=== PATIENT | male | born 1955 | race Caucasian/White ===

== ENCOUNTER 2018-06-16 12:41 | Emergency (ER) | payer BC ==
--- OUTSIDE RECORDS SUMMARY | 2018-06-16 12:45 | XMS REPORT | Continuity of Care Document ---
:1955 Author Organization Interface Problems Problem Status Onset Classification Date Comments Source Date Reported M51.26,CPT-15804, Active 08/09/19 [facility]27 [facility] [place] M51.26,CPT-37628, Active 08/09/19 38307 [address] [place] History of back Resolved Problem 12/03/2017 [facility] Hyperlipidemia Active Problem 12/03/2017 [facility] Hypertension Active Problem 12/03/2017 [facility] OTHER Active INTERVERTEBRAL [place] DISC DISPLACEMENT, Medications Medication Details Route Status Patient Ordering Order Source Instructions Provider Date Docusate Sodium 100 mg=1 cap, Active 100 MG Oral PO, BID, # 30 2016 [facility] Capsule cap, 1 Refill(s), Pharmacy: [id number] Diazepam 5 MG See Active Oral Tablet Instructions, 2016 [facility] [Valium] PRN Muscle Spasms, 1 tab PO q4-6 hrs prn muscle spasms, # 30 tab, 4 Refill(s) glycopyrrolate Route: IV, Drug Inactive (ANES) form: INJ, ONCE, 2016 [facility] Stop date: 08/30/16 13:42:00 [employer] neostigmine Route: IV, Drug Inactive (ANES) form: INJ, ONCE, 2016 Stop date: 08/30/16 13:42:00 [employer] ePHEDrine (ANES) Route: IV, Drug Inactive form: INJ, ONCE, 2016 [facility] Stop date: 08/30/16 13:12:00 [employer] ondansetron Route: IV, Drug Inactive (ANES) form: INJ, ONCE, 2016 [facility] Stop date: 08/30/16 12:42:00 [employer] propofol (ANES) Route: IV, Drug Inactive form: INJ, ONCE, 2016 [facility] Stop date: 08/30/16 12:22:00 [employer] morphine Sulfate Route: IV, Drug Inactive 02/13/ MH (ANES) form: INJ, ONCE, 2016 [facility] Stop date: 08/30/16 12:22:00 [employer] lidocaine (ANES) Route: IV, Drug Inactive 08/30/ MH form: INJ, ONCE, 2016 [facility] Stop date: 08/30/16 12:22:00 [employer] dexamethasone Route: IV, Drug Inactive 08/30/ MH (ANES) form: INJ, ONCE, 2016 [facility] Stop date: 08/30/16 12:22:00 [employer] rocuronium Route: IV, Drug Inactive 08/30/ MH (ANES) form: INJ, ONCE, 2016 [facility] Stop date: 08/30/16 12:22:00 [employer] ceFAZolin (ANES) Route: IV, Drug Inactive 08/30/ MH form: INJ, ONCE, 2016 [facility] Stop date: 08/30/16 12:22:00 [employer] fentaNYL (ANES) Route: IV, Drug Inactive MH form: INJ, ONCE, 2016 [facility] Stop date: 08/30/16 12:17:00 [employer] midazolam (ANES) Route: IV, Drug Inactive MH form: SOLN, 2016 [facility] , Stop date: 08/30/16 12:17:00 [employer] phenylephrine Route: IV, Drug Inactive 08/30/ MH (ANES) form: INJ, ONCE, 2016 [facility] Stop date: 08/30/16 12:12:00 [employer] acetaminophen Route: IV, Drug Inactive 08/30/ MH (ANES) (ANES) form: INJ, Start 2016 date: 08/30/16 11:49:00 [employer], Stop date: 08/30/16 12:49:00 [employer] LR 1000 mL INJ Route: IV, Total Inactive MH (ANES) Volume: 1,000, 2016 [facility] Start date: 08/30/16 11:10:00 [employer], Stop date: 08/30/16 12:10:00 [employer] 24 HR tramadol 100 mg, 2 tab, Inactive MH hydrochloride Route: PO, Drug 2016 [facility] 100 MG Extended form: TAB, PRN, Release Tablet PRN Pain Score 6-10, Start date: 08/30/16 9:31:00 [employer], Stop date: 08/30/16 23:00:00 CSTNotes: Not to exceed 400mg/day. (Same As: Ultram) tramadol 50 mg, 1 tab, Inactive hydrochloride 50 Route: PO, Drug 2016 [place] MG Oral Tablet form: TAB, ONCE, Dosing Weight 80.909, kg, PRN Pain Score 1-3, Start date: 08/30/16 9:31:00 CSTNotes: Not to exceed 400mg/day. (Same As: Ultram) Acetaminophen 2 tab, Route: Inactive 325 MG / PO, Drug Form: 2016 [facility] Hydrocodone TAB, Dosing Bitartrate 5 MG Weight 80.909, Oral Tablet kg, ONCE, PRN [[place] 5/325] Pain Score 4-6, Start date: 08/30/16 9:31:00 CSTNotes: (Same as: [place] 325/5) Do not exceed 4gm/day of acetaminophen. Acetaminophen 2 tab, Route: Inactive 300 MG / Codeine PO, Drug Form: 2016 [facility] Phosphate 30 MG TAB, Dosing Oral Tablet Weight 80.909, [Tylenol with kg, ONCE, PRN Codeine #3] Pain Score 4-6, Start date: 08/30/16 9:31:00 CSTNotes: Do not exceed 4gm/day of acetaminophen. (Same as: Tylenol with Codeine # 3) Ondansetron 4 mg, 2 mL, Inactive Route: IVP, Drug 2016 [facility] form: INJ, ONCE, Dosing Weight 80.909, kg, PRN Nausea & Vomiting, Start date: 08/30/16 9:31:00 CSTNotes: (Same as: [place]) MEDICATION WASTE Product Size: 4 mg Product Wasted: ___ mg Meperidine 12.5 mg, 0.5 mL, Inactive Route: IVP, Drug 2016 [facility] form: INJ, Q30Min, Dosing Weight 80.909, kg, PRN Other -See Comment, For shivering, Start date: 08/30/16 9:31:00 [employer], Duration: 2 doses or times, Stop date: 08/30/16 23:00:00 CSTNotes: (Same as: Demerol) "Use Precaution in Elderly, Seizure disorders, and Renal impairment" Naloxone 0.4 mg, 1 mL, Inactive Route: IVP, Drug 2016 [facility] form: INJ, Q2MIN, Dosing Weight 80.909, kg, PRN Narcotic Reversal, Start date: 08/30/16 9:31:00 [employer], Duration: 8 doses or times, Stop date: 08/30/16 23:00:00 CSTNotes: Same as Narcan Albuterol 0.83 2.5 mg, 0.5 mL, Inactive MG/ML Inhalant Route: NEB, Drug 2016 [facility] Solution form: SOLN, Q20Min, Dosing Weight 80.909, kg, PRN Wheezing, Priority: STAT, Start date: 08/30/16 9:31:00 [employer], Duration: 12 hr, Stop date: 08/30/16 21:30:00 CSTNotes: SEE RT DOCUMENTATION MEDICATION WASTE Product Size: 2.5 mg Product Wasted: ___ mg Morphine 4 mg, 1 mL, Inactive Route: IVP, Drug 2016 [facility] form: INJ, Q5Min, Dosing Weight 80.909, kg, PRN Pain Score 7-10, Start date: 08/30/16 9:31:00 [employer], Duration: 3 doses or times, Stop date: 08/30/16 23:00:00 CSTNotes: (Same as:MORPhine Sulfate) Flumazenil 0.2 mg, 2 mL, Inactive Route: IVP, 2016 [facility] form: INJ, PRN, Dosing Weight 80.909, kg, PRN Benzodiazepine Reversal, Initial dose, Start date: 08/30/16 9:31:00 [employer], Stop date: 08/30/16 23:00:00 CSTNotes: (Same as: Romazicon) Oxycodone 10 mg, 2 tab, Inactive Route: PO, Drug 2016 [facility] form: TAB, Q4H, Dosing Weight 80.909, kg, PRN Pain Score 7-10, Start date: 08/30/16 9:31:00 [employer], Stop date: 08/30/16 23:00:00 CSTNotes: (Same as: Roxicodone) Hydromorphone 0.5 mg, 0.5 mL, Inactive Route: IVP, 2016 [facility] form: INJ, Q5Min, Dosing Weight 80.909, kg, PRN Pain Score 7-10, Start date: 08/30/16 9:31:00 [employer], Duration: 4 doses or times, Stop date: 08/30/16 23:00:00 CSTNotes: Same as: Dilaudid Ketorolac 30 mg, 1 mL, Inactive Route: IVP, Drug 2016 [facility] form: INJ, ONCE, Dosing Weight 80.909, kg, Start date: 08/30/16 9:31:00 [employer], Duration: 1 doses or times, Stop date: 08/30/16 9:31:00 CSTNotes: (Same as:Toradol) IV bolus must be given >15 seconds. Give IM administration slowly and deeply into the muscle. Not for use > 4 days MEDICATION WASTE Product Size: 30 mg Product Wasted: ___ mg Acetaminophen 1,000 mg, 2 tab, Inactive Route: PO, Drug 2016 [facility] form: TAB, ONCE, Dosing Weight 80.909, kg, PRN Pain Score 1-3, Start date: 08/30/16 9:31:00 [employer], Duration: 1 doses or times, Stop date: Limited # of timesNotes: Max acetaminophen 4000 mg/day (4 gm/day). (Same as: Tylenol Extra Strength) Labetalol 10 mg, 2 mL, Inactive Route: IVP, Drug 2016 [facility] form: INJ, Q5Min, Dosing Weight 80.909, kg, PRN Elevated BP, Start date: 08/30/16 9:31:00 [employer], Duration: 5 doses or times, Stop date: 08/30/16 23:00:00 CSTNotes: (Same as: Normodyne, Trandate) Push over 2 minutes Give bolus over 2-3 minutes. Hydralazine 10 mg, 0.5 mL, Inactive Route: IVP, Drug 2016 [facility] form: INJ, Q20Min, Dosing Weight 80.909, kg, PRN Elevated BP, Start date: 08/30/16 9:31:00 [employer], Duration: 2 doses or times, Stop date: 08/30/16 23:00:00 CSTNotes: (Same as: Apresoline) Push over 5 minutes Acetaminophen 1,000 mg, 100 Inactive mL, Route: IV, 2016 [facility] Drug form: INJ, ONCE, Dosing Weight 80.909, kg, Start date: 08/30/16 9:30:00 [employer], Stop date: 08/30/16 9:30:00 CSTNotes: Infuse over 15 minutes Do not exceed 4gm/day of acetaminophen MEDICATION WASTE Product Size: 1000 mg Product Wasted: ___ mg Calcium Chloride 1,000 mL, Rate: Inactive 0.0014 MEQ/ML / 25 ml/hr, Infuse 2016 [facility] Potassium over: 40 hr, Chloride 0.004 Route: IV, MEQ/ML / Sodium Dosing Weight Chloride 0.103 80.909 kg, Total MEQ/ML / Sodium Volume: 1,000, Lactate 0.028 Start date: MEQ/ML 08/30/16 9:30:00 Injectable [employer], Duration: Solution 12 hr, Stop date: 08/30/16 21:29:00 [employer] Lactated Ringers 1,000 mL, Rate: Inactive 08/30[facility] 1,000 mL 70 ml/hr, Infuse 2016 [facility] over: 14.3 hr, Route: IV, Dosing Weight 80.909 kg, Total Volume: 1,000, Start date: 08/30/16 6:00:00 [employer], Duration: 12 hr, Stop date: 08/30/16 17:59:00 [employer] ceFAZolin 2 gm, 50 mL, Inactive 08/30[facility] Route: IVPB, 2016 [facility] Drug form: INJ, ONCALL, Start date: 08/30/16 6:00:00 [employer], Duration: 12 hr, Stop date: 08/30/16 17:59:00 [employer] Allergies, Adverse Reactions, Alerts Substance Category Reaction Severity Reaction Status Date Comments Source type Reported Bactrim Assertion Critical Drug Active [facility] Immunizations Immunization Date Given Site Status Last Updated Comments Source Results Order Results Value Reference Date Interpretation Comments Source Name Range Vital Signs Vital Sign Value Date Comments Source Respitory Rate 16 08/30/2016 [facility] Systolic (mm Hg) 120 08/30/2016 [facility] Diastolic (mm Hg) 70 08/30/2016 [facility] Systolic (mm Hg) 120 08/30/2016 [facility] Diastolic (mm Hg) 70 08/30/2016 [facility] Respitory Rate 16 08/30/2016 [facility] Systolic (mm Hg) 120 08/30/2016 [facility] Diastolic (mm Hg) 70 08/30/2016 [facility] Respitory Rate 16 08/30/2016 [facility] Heart Rate 85 08/30/2016 [facility] Weight 80.909 08/27/2016 [facility] Height 170.18 cm 08/27/2016 [facility] BMI Calculated 27.94 08/27/2016 [facility] Weight 80.909 08/13/2016 [facility] Height 170.18 cm 08/13/2016 [facility] BMI Calculated 27.94 08/13/2016 [facility] Encounters Location Location Encounter Encounter Reason Attending ADM DC Status Source Details Type Number For Provider Date Date Visit Out[id number] [facility] [place] [facility] [id number]30 [facility] [id number] Edward 08/30 08/30 [facility] Sonam /2016 [facility] [id number] EDWARD 09/15 [facility] [place] [facility] [id number] ED[facility] 10/13 [phone] Procedures Procedure Code Date Perfomer Comments Source Injection into [id number] [facility] lumbar epidural space Laminectomy [id number] [id number] lumbar epidural space Perianal cysts [id number] [facility]
--- OUTSIDE RECORDS SUMMARY | 2018-06-16 12:46 | XMS REPORT ---
:1955 Author Organization eClinicalWorks Care Team Providers Name Role Phone Fredis Soliman Provider Role Unavailable Allergies No Known Allergies Problems Problem Type Condition Code Onset Dates Condition Status Assessment Acute nasopharyngitis J00 Active Problem Mixed hyperlipidemia E78.2 Active Assessment Non-seasonal allergic rhinitis, J30.89 Active unspecified trigger Problem Fungal infection of nail B35.1 Active Problem Sciatic nerve pain, unspecified M54.30 Active laterality Problem Decreased hearing of both ears H91.93 Active Problem B12 deficiency E53.8 Active Problem Neuropathic pain M79.2 Active Problem Disc degeneration, lumbosacral M51.37 Active Problem Hypertension I10 Active Medications Medication Code Code Instructions Start End Status Dosage System Date Date Simvastatin [facility] 22950284103 20 MG Orally Active 1 tablet in Once a day the evening Aspirin Adult [facility] 89228864833 81 MG Orally Active 1 tablet Low Dose Once a day Lisinopril [facility] 29762996896 20 MG Orally Active 1 tablet Once a day Lyrica [facility] 75581567348 50 MG Orally Active 1 capsule Twice a day Vitamin B-12 [facility] 17085977411 1000 MCG Orally Active 1 tablet Once a day Vitamin D3 [facility] 42209074012 1000 UNIT Active 5 capsuleS Orally Once a day Simvastatin [facility] 09844803169 20 MG Orally Active 1 tablet in Once a day the evening Results No Known Results Summary Purpose eClinicalWorks Submission
--- OUTSIDE RECORDS SUMMARY | 2018-06-16 12:46 | XMS REPORT ---
:1955 Author Organization eClinicalWorks Care Team Providers Name Role Phone Fredis Soliman Provider Role Unavailable Allergies, Adverse Reactions, Alerts Substance Reaction Event Type Bactrim [facility] Drug Allergy Problems Problem Type Condition Code Onset Dates Condition Status Assessment Mixed hyperlipidemia E78.2 Active Problem Mixed hyperlipidemia E78.2 Active Problem Fungal infection of nail B35.1 Active Problem Sciatic nerve pain, unspecified M54.30 Active laterality Problem Decreased hearing of both ears H91.93 Active Problem B12 deficiency E53.8 Active Problem Neuropathic pain M79.2 Active Problem Disc degeneration, lumbosacral M51.37 Active Problem Hypertension I10 Active Assessment B12 deficiency E53.8 Active Assessment Sciatic nerve pain, unspecified M54.30 Active laterality Assessment Neuropathic pain M79.2 Active Assessment Decreased hearing of both ears H91.93 Active Assessment Hypertension I10 Active Medications Medication Code Code Instructions Start End Status Dosage System Date Date Simvastatin [facility] 50795825470 20 MG Orally Active 1 tablet in Once a day the evening Simvastatin [facility] 05394181521 20 MG Orally Active 1 tablet in Once a day the evening Lyrica ND 29012116823 50 MG Orally Active 1 capsule Twice a day Aspirin Adult [facility] 80789684084 81 MG Orally Active 1 tablet Low Dose Once a day Vitamin D3 [facility] 27571706173 1000 UNIT Active 5 capsuleS Orally Once a day Lisinopril [facility] 33986095690 20 MG Orally Active 1 tablet Once a day Vitamin B-12 [facility] 00469790207 1000 MCG Orally Active 1 tablet Once a day Results No Known Results Summary Purpose eClinicalWorks Submission
--- OUTSIDE RECORDS SUMMARY | 2018-06-16 12:46 | XMS REPORT ---
:1955 Author Organization eClinicalWorks Care Team Providers Name Role Phone Jourdan Fredis Provider Role Unavailable Allergies No Known Allergies Problems Problem Type Condition Code Onset Dates Condition Status Assessment Hypertension I10 Active Problem Mixed hyperlipidemia E78.2 Active Assessment Mixed hyperlipidemia E78.2 Active Problem Fungal infection of nail B35.1 Active Problem Sciatic nerve pain, unspecified M54.30 Active laterality Problem Decreased hearing of both ears H91.93 Active Problem B12 deficiency E53.8 Active Problem Neuropathic pain M79.2 Active Problem Disc degeneration, lumbosacral M51.37 Active Problem Hypertension I10 Active Assessment Decreased hearing of both ears H91.93 Active Assessment B12 deficiency E53.8 Active Assessment Sciatic nerve pain, unspecified M54.30 Active laterality Assessment Neuropathic pain M79.2 Active Medications Medication Code Code Instructions Start End Status Dosage System Date Date Simvastatin ND 26439715719 20 MG Orally Active 1 tablet in Once a day the evening Vitamin B-12 ND 80329812053 1000 MCG Orally Active 1 tablet Once a day Aspirin Adult [facility] 38078708874 81 MG Orally Active 1 tablet Low Dose Once a day Vitamin D3 [facility] 94517034849 1000 UNIT Active 5 capsuleS Orally Once a day Lyrica ND 73237107871 50 MG Orally Active 1 capsule Twice a day Lisinopril [facility] 06913266069 20 MG Orally Active 1 tablet Once a day Results No Known Results Summary Purpose eClinicalWorks Submission
[2018-06-16] MEDS ORDERED: KETOROLAC 30 MG/ML INJ ONE (15:41)
--- NOTE | 2018-06-16 16:27 | RAD REPORT ---
EXAM DESCRIPTION: RAD - Pelvis - 06/16/2018 3:55 pm CLINICAL HISTORY: PAIN Fall, right-sided pain COMPARISON: None FINDINGS: AP pelvis and right hip, multiple projections are submitted. Osteoarthritic changes are present in both hips. No acute fracture or dislocation seen.
--- NOTE | 2018-06-16 16:30 | RAD REPORT ---
EXAM DESCRIPTION: RAD - Lumbar Spine 3 Views - 06/16/2018 3:58 pm CLINICAL HISTORY: PAIN Radiculopathy COMPARISON: Lumbar Spine 3 Views dated 05/14/2016 FINDINGS: Vertebral body heights appear maintained. No compression fracture noted. Advanced multilev el degenerative change throughout the lumbar spine is noted. No spondylolysis or spondylolisthesis. Aortic atherosclerosis seen. IMPRESSION: Advanced degenerative change throughout the lumbar spine without acute finding.
--- NOTE | 2018-06-16 17:37 | EDPHYS ---
Physician Documentation [facility] Name: Gabino Rosenberg Age: 63 yrs Sex: Male : 1955 Arrival Date: 06/16/2018 Time: 12:45 Bed 25 Private MD: Jourdan [facility] ED Physician Emanuel Xiong HPI: 06/16 15:20 This 63 yrs old Male presents to ER via Ambulatory with complaints of Buttock cp Injury. 15:20 Trauma demographics: County: The injury occurred in [place] Location of Injury: The cp injury occurred at work, Date: June 16, 2018. 15:20 Mechanism of injury: Fall: the patient fell from a standing position. Associated cp injuries: The patient sustained right buttock, painful ROM. Onset: The symptoms/episode began/occurred today. Patient reports slipping on muddy surface causing him to do the splits and hyper flex right leg. Since fall patient reports pain to right lower buttock that radiates to right hip and groin. Historical: - Allergies: 13:26 Sulfa (Sulfonamide Antibiotics); ph - PMHx: 13:26 chronic back pain; Hypertension; ph - PSHx: 13:26 back sx; ph - Immunization history:: Adult Immunizations up to date. - Social history:: Smoking status: Patient/guardian denies using tobacco. - Ebola Screening: : Patient negative for fever greater than or equal to 101.5 degrees Fahrenheit, and additional compatible Ebola Virus Disease symptoms Patient denies exposure to infectious person Patient denies travel to an Ebola-affected area in the 21 days before illness onset No symptoms or risks identified at this time. ROS: 15:30 Constitutional: Negative for body aches, chills, fever, poor PO intake. cp 15:30 Eyes: Negative for injury, pain, redness, and discharge. cp 15:30 ENT: Negative for drainage from ear(s), ear pain, sore throat, difficulty swallowing, difficulty handling secretions. 15:30 Cardiovascular: Negative for chest pain, edema, palpitations. 15:30 Respiratory: Negative for cough, shortness of breath, wheezing. 15:30 Abdomen/GI: Negative for abdominal pain, nausea, vomiting, and diarrhea, constipation, black/tarry stool, rectal bleeding. 15:30 : Negative for urinary symptoms, testicular pain 15:30 MS/extremity: Positive for pain, of the right buttock and right hip, Negative for decreased range of motion, deformity, paresthesias. 15:30 Skin: Negative for cellulitis, rash. 15:30 Neuro: Negative for altered mental status, loss of consciousness, syncope, near syncope, weakness. 15:30 All other systems are negative. Exam: 15:35 Constitutional: The patient appears in no acute distress, alert, awake, cp non-diaphoretic, non-toxic, well developed, well nourished, uncomfortable. 15:35 Head/Face: Normocephalic, atraumatic. cp 15:35 Eyes: Periorbital structures: appear normal, Conjunctiva: normal, no exudate, no injection, Lids and lashes: appear normal, bilaterally. 15:35 ENT: External ear(s): are unremarkable, Nose: is normal, Mouth: is normal, Posterior pharynx: is normal, airway is patent, no erythema, no exudate. 15:35 Neck: C-spine: vertebral tenderness, is not appreciated, crepitus, is not appreciated, ROM/movement: is normal. 15:35 Chest/axilla: Inspection: normal. 15:35 Cardiovascular: Rate: normal. 15:35 Respiratory: the patient does not display signs of respiratory distress, Respirations: normal, no use of accessory muscles, no retractions, no splinting, no tachypnea. 15:35 Abdomen/GI: Inspection: abdomen appears normal, Bowel sounds: active, all quadrants, Palpation: abdomen is soft and non-tender, in all quadrants. 15:35 Back: pain, that is mild, of the lumbar area, ROM is normal, Straight leg raises: of both lower extremities does not illicit pain. 15:35 Musculoskeletal/extremity: Extremities: grossly normal except: noted in the right lower buttock: pain, tenderness, Joints: All joints are normal except the right hip displays painful range of motion, tenderness, Weight bearing: able to fully bear weight. 15:35 Skin: cellulitis, is not appreciated, no rash present. 15:35 Neuro: Orientation: to person, place \T\ time. Mentation: is normal, Cerebellar function: is grossly normal, Motor: is normal, Sensation: is normal. Vital Signs: 13:22 BP 136 / 90; Pulse 89; Resp 18; Temp 97.2; Pulse Ox 98% on R/A; Weight 81.65 kg; Pain ph 9/10; 15:45 BP 124 / 90; Pulse 77; Resp 17; Pulse Ox 97% on R/A; Pain 7/10; ed1 17:30 BP 105 / 57; Pulse 70; Resp 17; Pulse Ox 97% on R/A; Pain 4/10; ed1 Alvina Coma Score: 13:22 Eye Response: spontaneous(4). Verbal Response: oriented(5). Motor Response: obeys ph commands(6). Total: 15. Trauma Score (Adult): 13:22 Eye Response: spontaneous(1); Verbal Response: oriented(1); Motor Response: obeys ph commands(2); Systolic BP: > 89 mm Hg(4); Respiratory Rate: 10 to 29 per min(4); Alvina Score: 15; Trauma Score: 12 MDM: 14:51 Patient medically screened. cp 17:35 Data reviewed: vital signs, nurses notes, radiologic studies, plain films. cp 17:35 Test interpretation: by ED physician or midlevel provider: plain radiologic studies. cp Counseling: I had a detailed discussion with the patient and/or guardian regarding: the historical points, exam findings, and any diagnostic results supporting the discharge/admit diagnosis, radiology results, the need for outpatient follow up, primary physician, to return to the emergency department if symptoms worsen or persist or if there are any questions or concerns that arise at home. Response to treatment: the patient's symptoms have markedly improved after treatment. 06/16 15:18 Order name: XRAY Hip RIGHT 2 view 06/16 15:18 Order name: XRAY Pelvis 06/16 15:18 Order name: XRAY Lumbar Spine (3 Views) 06/16 16:31 Order name: RAD; Complete Time: 17:35 EDMS 06/16 17:35 Interpretation: Report reviewed. cp 06/16 16:31 Order name: RAD; Complete Time: 17:35 EDMS 06/16 17:35 Interpretation: Report reviewed. cp Administered Medications: 15:36 Drug: TORadol 60 mg Route: IM; Site: right gluteus; ph 17:43 Follow up: Response: No adverse reaction; Pain is decreased ed1 17:43 Drug: Flexeril 10 mg Route: PO; ed1 17:43 Follow up: Response: Medication administered at discharge. ed1 17:43 Drug: Hydrocodone-Acetaminophen (7.5 mg-325 mg) 1 tabs Route: PO; ed1 17:43 Follow up: Response: Medication administered at discharge. ed1 Disposition: 06/16/18 17:36 Discharged to Home. Impression: Pain in right hip - from fall, Low back pain - from fall. - Condition is Stable. - Discharge Instructions: Back Pain, Adult, Hip Pain, Back Exercises, [id number], Heat Therapy. - Prescriptions for Anaprox DS 550 mg Oral Tablet - take 1 tablet by ORAL route every 12 hours As needed; 20 tablet. Cyclobenzaprine 10 mg Oral Tablet - take 1 tablet by ORAL route every 8 hours As needed no driving while taking medication; 20 tablet. Tramadol 50 mg Oral Tablet - take 1 tablet by ORAL route every 8 hours as needed. no driving while taking medication; 20 tablet. - Work release form, Medication Reconciliation Form, Thank You Letter, Antibiotic Education, Prescription Opioid Use form. - Follow up: Fredis Soliman DO; When: 2 - 3 days; Reason: Recheck today's complaints. - Problem is new. - Symptoms have improved. Addendum: 06/18/2018 09:14 Co-signature as Attending Physician, Emanuel Xiong MD I agree with the assessment and k dr plan of care. Signatures: Dispatcher [employer] EDDE Emanuel Xiong MD MD [facility] Chelsea Wilson, FINANCIAL PLANNING ADVISOR FINANCIAL PLANNING ADVISOR ed1 Ivania Dang RN RN ph Sia, Gregg, THONY PA cp Corrections: (The following items were deleted from the chart) 06/16 17:49 17:36 06/16/2018 17:36 Discharged to Home. Impression: Pain in right hip - from fall; ed1 Low back pain - from fall. Condition is Stable. Forms are Medication Reconciliation Form, Thank You Letter, Antibiotic Education, Prescription Opioid Use. Follow up: Fredis Soliman; When: 2 - 3 days; Reason: Recheck today's complaints. Problem is new. Symptoms have improved. cp
--- NOTE | 2018-06-16 17:37 | ER ---
Nurse's Notes [facility] Name: Gabino Rosenberg Age: 63 yrs Sex: Male : 1955 Arrival Date: 06/16/2018 Time: 12:45 Bed 25 Private MD: Fredis Soliman Diagnosis: Pain in right hip-from fall;Low back pain-from fall Presentation: 06/16 13:20 Presenting complaint: Patient states: " I slipped in some mud and fell, I didn't hit my ph head or anything but I think I pulled something in my buttocks." Pt reports pain in R buttock that radiates to hip and groin area, also reports low back pain when fall occurred, denies back pain at this time. Care prior to arrival: None. Mechanism of Injury: Fall from standing position. Trauma event details: Injury occurred in the [facility], Injury occurred: in an institution. Injury occurred: June 16, 2018. 13:20 Method Of Arrival: Ambulatory 13:20 Acuity: JUVENAL 4 ph 14:41 Transition of care: patient was not received from another setting of care. Onset of ed1 symptoms was June 16, 2018. Risk Assessment: Do you want to hurt yourself or someone else? Patient reports no desire to harm self or others. Initial Sepsis Screen: Does the patient meet any 2 criteria? No. Patient's initial sepsis screen is negative. Does the patient have a suspected source of infection? No. Patient's initial sepsis screen is negative. Trauma Activation: Not Applicable Physician: ED Physician; Name: ; Notified At: ; Arrived At: Physician: General Surgeon; Name: ; Notified At: ; Arrived At: Physician: Radiology; Name: ; Notified At: ; Arrived At: Physician: Respiratory; Name: ; Notified At: ; Arrived At: Physician: Lab; Name: ; Notified At: ; Arrived At: Historical: - Allergies: 13:26 Sulfa (Sulfonamide Antibiotics); ph - PMHx: 13:26 chronic back pain; Hypertension; ph - PSHx: 13:26 back sx; ph - Immunization history:: Adult Immunizations up to date. - Social history:: Smoking status: Patient/guardian denies using tobacco. - Ebola Screening: : Patient negative for fever greater than or equal to 101.5 degrees Fahrenheit, and additional compatible Ebola Virus Disease symptoms Patient denies exposure to infectious person Patient denies travel to an Ebola-affected area in the 21 days before illness onset No symptoms or risks identified at this time. Screenin:48 Abuse screen: Denies threats or abuse. Denies injuries from another. Nutritional ph screening: No deficits noted. Tuberculosis screening: No symptoms or risk factors identified. Fall Risk None identified. Assessment: 14:48 General: Appears uncomfortable, Behavior is calm, cooperative. Pain: Complains of pain ph in right gluteus noemi Pain radiates to right femoral area and right hip Pain currently is 9 out of 10 on a pain scale. Quality of pain is described as sharp, shooting, Pain began 2 hours ago. Is continuous, Aggravated by increased activity, weight bearing. Neuro: Level of Consciousness is awake, alert, obeys commands, Oriented to person, place, time, situation, Denies hitting head and LOC. Cardiovascular: Denies chest pain, Heart tones S1 S2 present Capillary refill < 3 seconds in bilateral fingers. Respiratory: Airway is patent Respiratory effort is even, unlabored, Respiratory pattern is regular, symmetrical, Breath sounds are clear bilaterally. Denies cough, shortness of breath. GI: No signs and/or symptoms were reported involving the gastrointestinal system. : No signs and/or symptoms were reported regarding the genitourinary system. EENT: No signs and/or symptoms were reported regarding the EENT system. Derm: Skin is intact, is healthy with good turgor, Skin is dry, Skin is normal, Skin temperature is warm. Musculoskeletal: Circulation, motion, and sensation intact. Range of motion: intact in all extremities, Swelling absent. 15:45 Reassessment: Patient appears in no apparent distress at this time. Patient and/or ed1 family updated on plan of care and expected duration. Pain level reassessed. Patient is alert, oriented x 3, equal unlabored respirations, skin warm/dry/pink. Patient states feeling better. Patient states symptoms have improved. 17:30 Reassessment: Patient appears in no apparent distress at this time. Patient and/or ed1 family updated on plan of care and expected duration. Pain level reassessed. Patient is alert, oriented x 3, equal unlabored respirations, skin warm/dry/pink. Patient states feeling better. Patient states symptoms have improved. Vital Signs: 13:22 BP 136 / 90; Pulse 89; Resp 18; Temp 97.2; Pulse Ox 98% on R/A; Weight 81.65 kg; Pain ph 9/10; 15:45 BP 124 / 90; Pulse 77; Resp 17; Pulse Ox 97% on R/A; Pain 7/10; ed1 17:30 BP 105 / 57; Pulse 70; Resp 17; Pulse Ox 97% on R/A; Pain 4/10; ed1 Alvina Coma Score: 13:22 Eye Response: spontaneous(4). Verbal Response: oriented(5). Motor Response: obeys ph commands(6). Total: 15. Trauma Score (Adult): 13:22 Eye Response: spontaneous(1); Verbal Response: oriented(1); Motor Response: obeys ph commands(2); Systolic BP: > 89 mm Hg(4); Respiratory Rate: 10 to 29 per min(4); [place] Score: 15; Trauma Score: 12 ED Course: 12:45 Patient arrived in ED. as 12:45 Fredis Soliman DO is Private Physician. as 13:22 Triage completed. ph 13:26 Arm band placed on Patient placed in waiting room, Patient notified of wait time. ph 14:48 Ivania Dang RN is Primary Nurse. ph 14:48 Awaiting ED provider evaluation. ph 14:48 Patient has correct armband on for positive identification. Bed in low position. Call ph light in reach. Side rails up X 1. 14:51 Gregg Stovall PA is PHCP. cp 14:51 Emanuel Xiong MD is Attending Physician. cp 16:06 Primary Nurse role handed off by Ivania Dang RN ed1 16:06 Chelsea Wilson LVN is Primary Nurse. ed1 17:35 Fredis Soliman DO is Referral Physician. cp 17:46 No provider procedures requiring assistance completed. Patient did not have IV access ed1 during this emergency room visit. 06/17 17:39 XRAY Hip RIGHT 2 view In Process Unspecified. EDMS Administered Medications: 06/16 15:36 Drug: TORadol 60 mg Route: IM; Site: right gluteus; ph 17:43 Follow up: Response: No adverse reaction; Pain is decreased ed1 17:43 Drug: Flexeril 10 mg Route: PO; ed1 17:43 Follow up: Response: Medication administered at discharge. ed1 17:43 Drug: Hydrocodone-Acetaminophen (7.5 mg-325 mg) 1 tabs Route: PO; ed1 17:43 Follow up: Response: Medication administered at discharge. ed1 Outcome: 17:36 Discharge ordered by . cp 17:46 Discharged to home ambulatory, with significant other. ed1 17:46 Condition: good 17:46 Discharge instructions given to patient, family, Instructed on discharge instructions, follow up and referral plans. medication usage, Demonstrated understanding of instructions, follow-up care, medications, Prescriptions given X 3. 17:49 Patient left the ED. ed1 Signatures: Dispatcher [employer] EDMS Bethany Darling Erika, BUSINESS ADVISOR BUSINESS ADVISOR ed1 Ivania Dang, GONZALES RN ph Gregg Stovall, PA PA cp
[2018-06-16] MEDS ORDERED: CYCLOBENZAPRINE 10 MG TAB ONE (17:45)
[2018-06-16] MEDS ORDERED: HYDROCODONE/APAP 7.5/325 MG TAB ONE (17:45)
--- NOTE | 2018-06-19 09:28 | RAD REPORT ---
EXAM DESCRIPTION: RAD - Hip Right 2 View - 06/16/2018 3:55 pm CLINICAL HISTORY: PAIN Fall, right-sided pain COMPARISON: None FINDINGS: AP pelvis and right hip, multiple projections are submitted. Osteoarthritic changes are present in both hips. No acute fracture or dislocation seen.
== END 2018-06-16 17:49 | disposition home or self-care (01) ==
LOC: ER 12:41
DX: M54.5 Low back pain (principal); W01.0XXA Fall on same level from slipping, tripping and stumbling without subsequent striking against object, initial encounter; Y93.89 Activity, other specified; Y92.89 Other specified places as the place of occurrence of the external cause; Z88.2 Allergy status to sulfonamides; I10 Essential (primary) hypertension
CPT/HCPCS: 72100; 72170; 96372; 99283

== ENCOUNTER 2018-09-15 07:23 | Day surgery (SDC) | payer BC ==
--- OUTSIDE RECORDS SUMMARY | 2018-09-15 07:26 | XMS REPORT ---
[...] End Status Dosage System Date Date Simvastatin [facility] 27737960907 20 MG Orally Active 1 tablet in Once a day the evening Aspirin Adult [facility] 85466515916 81 MG Orally Active 1 tablet Low Dose Once a day Lisinopril [facility] 79596944644 20 MG Orally Active 1 tablet Once a day Lyrica [facility] 18685824699 50 MG Orally Active 1 capsule Twice a day Vitamin B-12 [facility] 86670903304 1000 MCG Orally Active 1 tablet Once a day Vitamin D3 [facility] 64251460469 1000 UNIT Active 5 capsuleS Orally Once a day Simvastatin [facility] 97240120142 20 MG Orally Active 1 tablet in Once a day the evening Results No Known Results Summary Purpose eClinicalWorks Submission
--- OUTSIDE RECORDS SUMMARY | 2018-09-15 07:26 | XMS REPORT ---
[...] Status Dosage System Date Date Simvastatin ND 75097196896 20 MG Orally Active 1 tablet in Once a day the evening Vitamin B-12 ND 67237008482 1000 MCG Orally Active 1 tablet Once a day Aspirin Adult [facility] 92553716744 81 MG Orally Active 1 tablet Low Dose Once a day Vitamin D3 [facility] 38751202438 1000 UNIT Active 5 capsuleS Orally Once a day Lyrica ND 29149397412 50 MG Orally Active 1 capsule Twice a day Lisinopril [facility] 79961596442 20 MG Orally Active 1 tablet Once a day Results No Known Results Summary Purpose eClinicalWorks Submission
--- OUTSIDE RECORDS SUMMARY | 2018-09-15 07:26 | XMS REPORT | Continuity of Care Document ---
:1955 Author Organization Interface Problems Problem Status Onset Classification Date Comments Source Date Reported M51.26,CPT-61803, Active 08/09/19 28311 17 [facility] M51.26,CPT-49929, Active 08/09/[address] [facility] History of back Resolved Problem 12/03/2017 pain [facility] Hyperlipidemia Active Problem 12/03/2017 [facility] Hypertension Active Problem 12/03/2017 [facility] OTHER Active INTERVERTEBRAL [facility] DISC DISPLACEMENT, Medications Medication Details Route Status Patient Ordering Order Source Instructions Provider Date Docusate Sodium 100 mg=1 cap, Active 100 MG Oral PO, BID, # [address] [facility] Capsule cap, 1 Refill(s), Pharmacy: [id number] Diazepam 5 MG See Active Oral Tablet Instructions, 2016 [Valium] PRN Muscle Spasms, 1 tab PO q4-6 hrs prn muscle spasms, # 30 tab, 4 Refill(s) glycopyrrolate Route: IV, Drug Inactive (ANES) form: INJ, ONCE, 2016 [facility] Stop date: 08/30/16 13:42:00 [place] neostigmine Route: IV, Drug Inactive (ANES) form: INJ, ONCE, 2016 [facility] Stop date: 08/30/16 13:42:00 [place] ePHEDrine (ANES) Route: IV, Drug Inactive form: INJ, ONCE, 2016 [facility] Stop date: 08/30/16 13:12:00 [place] ondansetron Route: IV, Drug Inactive (ANES) form: INJ, ONCE, 2016 [facility] Stop date: 08/30/16 12:42:00 [place] propofol (ANES) Route: IV, Drug Inactive form: INJ, ONCE, 2016 [facility] Stop date: 08/30/16 12:22:00 [place] morphine Sulfate Route: IV, Drug Inactive 02/13/ MH (ANES) form: INJ, ONCE, 2016 [facility] Stop date: 08/30/16 12:22:00 [place] lidocaine (ANES) Route: IV, Drug Inactive 08/30/ MH form: INJ, ONCE, 2016 [facility] Stop date: 08/30/16 12:22:00 [place] dexamethasone Route: IV, Drug Inactive 08/30/ MH (ANES) form: INJ, ONCE, 2016 [facility] Stop date: 08/30/16 12:22:00 [place] rocuronium Route: IV, Drug Inactive 08/30/ MH (ANES) form: INJ, ONCE, 2016 [facility] Stop date: 08/30/16 12:22:00 [place] ceFAZolin (ANES) Route: IV, Drug Inactive 08/30/ MH form: INJ, ONCE, 2016 [facility] Stop date: 08/30/16 12:22:00 [place] fentaNYL (ANES) Route: IV, Drug Inactive 08/30/ MH form: INJ, ONCE, 2016 [facility] Stop date: 08/30/16 12:17:00 [place] midazolam (ANES) Route: IV, Drug Inactive 08/30/ MH form: SOLN, 2016 [facility] , Stop date: 08/30/16 12:17:00 [place] phenylephrine Route: IV, Drug Inactive 08/30/ MH (ANES) form: INJ, ONCE, 2016 [facility] Stop date: 08/30/16 12:12:00 [place] acetaminophen Route: IV, Drug Inactive 08/30/ MH (ANES) (ANES) form: INJ, Start 2016 date: 08/30/16 11:49:00 [place], Stop date: 08/30/16 12:49:00 [place] LR 1000 mL INJ Route: IV, Total Inactive MH (ANES) Volume: 1,000, 2016 [facility] Start date: 08/30/16 11:10:00 [place], Stop date: 08/30/16 12:10:00 [place] 24 HR tramadol 100 mg, 2 tab, Inactive hydrochloride Route: PO, Drug 2016 [facility] 100 MG Extended form: TAB, PRN, Release Tablet PRN Pain Score 6-10, Start date: 08/30/16 9:31:00 [place], Stop date: 08/30/16 23:00:00 CSTNotes: Not to exceed 400mg/day. (Same As: Ultram) tramadol 50 mg, 1 tab, Inactive hydrochloride 50 Route: PO, Drug 2016 [facility] MG Oral Tablet form: TAB, ONCE, Dosing Weight 80.909, kg, PRN Pain Score 1-3, Start date: 08/30/16 9:31:00 CSTNotes: Not to exceed 400mg/day. (Same As: Ultram) Acetaminophen 2 tab, Route: Inactive 325 MG / PO, Drug Form: 2016 [facility] Hydrocodone TAB, Dosing Bitartrate 5 MG Weight 80.909, Oral Tablet kg, ONCE, PRN [[place] 5/325] Pain Score 4-6, Start date: 08/30/16 9:31:00 CSTNotes: (Same as: [place] 325/5) Do not exceed 4gm/day of acetaminophen. Acetaminophen 2 tab, Route: Inactive 300 MG / Codeine PO, Drug Form: 2016 [facility] Phosphate 30 MG TAB, Dosing Oral Tablet Weight 80.909, [Tylenol with kg, ONCE, PRN Codeine #3] Pain Score 4-6, Start date: 08/30/16 9:31:00 CSTNotes: Do not exceed 4gm/day of acetaminophen. (Same as: Tylenol with Codeine # 3) Ondansetron 4 mg, 2 mL, Inactive Route: IVP, Drug 2016 [facility] form: INJ, ONCE, Dosing Weight 80.909, kg, PRN Nausea & Vomiting, Start date: 08/30/16 9:31:00 CSTNotes: (Same as: Hernandez) MEDICATION WASTE Product Size: 4 mg Product Wasted: ___ mg Meperidine 12.5 mg, 0.5 mL, Inactive Route: IVP, Drug 2016 [facility] form: INJ, Q30Min, Dosing Weight 80.909, kg, PRN Other -See Comment, For shivering, Start date: 08/30/16 9:31:00 [place], Duration: 2 doses or times, Stop date: 08/30/16 23:00:00 CSTNotes: (Same as: Demerol) "Use Precaution in Elderly, Seizure disorders, and Renal impairment" Naloxone 0.4 mg, 1 mL, Inactive Route: IVP, 2016 [facility] form: INJ, Q2MIN, Dosing Weight 80.909, kg, PRN Narcotic Reversal, Start date: 08/30/16 9:31:00 [place], Duration: 8 doses or times, Stop date: 08/30/16 23:00:00 CSTNotes: Same as Narcan Albuterol 0.83 2.5 mg, 0.5 mL, Inactive MG/ML Inhalant Route: NEB, Drug 2016 [facility] Solution form: SOLN, Q20Min, Dosing Weight 80.909, kg, PRN Wheezing, Priority: STAT, Start date: 08/30/16 9:31:00 [place], Duration: 12 hr, Stop date: 08/30/16 21:30:00 CSTNotes: SEE RT DOCUMENTATION MEDICATION WASTE Product Size: 2.5 mg Product Wasted: ___ mg Morphine 4 mg, 1 mL, Inactive Route: IVP, Drug 2016 [facility] form: INJ, Q5Min, Dosing Weight 80.909, kg, PRN Pain Score 7-10, Start date: 08/30/16 9:31:00 [place], Duration: 3 doses or times, Stop date: 08/30/16 23:00:00 CSTNotes: (Same as:MORPhine Sulfate) Flumazenil 0.2 mg, 2 mL, Inactive Route: IVP, 2016 [facility] form: INJ, PRN, Dosing Weight 80.909, kg, PRN Benzodiazepine Reversal, Initial dose, Start date: 08/30/16 9:31:00 [place], Stop date: 08/30/16 23:00:00 CSTNotes: (Same as: Romazicon) Oxycodone 10 mg, 2 tab, Inactive Route: PO, Drug 2016 [facility] form: TAB, Q4H, Dosing Weight 80.909, kg, PRN Pain Score 7-10, Start date: 08/30/16 9:31:00 [place], Stop date: 08/30/16 23:00:00 CSTNotes: (Same as: Roxicodone) Hydromorphone 0.5 mg, 0.5 mL, Inactive Route: IVP, Drug 2016 [facility] form: INJ, Q5Min, Dosing Weight 80.909, kg, PRN Pain Score 7-10, Start date: 08/30/16 9:31:00 [place], Duration: 4 doses or times, Stop date: 08/30/16 23:00:00 CSTNotes: Same as: Dilaudid Ketorolac 30 mg, 1 mL, Inactive Route: IVP, Drug 2016 [facility] form: INJ, ONCE, Dosing Weight 80.909, kg, Start date: 08/30/16 9:31:00 [place], Duration: 1 doses or times, Stop date: 08/30/16 9:31:00 CSTNotes: (Same as:Toradol) IV bolus must be given >15 seconds. Give IM administration slowly and deeply into the muscle. Not for use > 4 days MEDICATION WASTE Product Size: 30 mg Product Wasted: ___ mg Acetaminophen 1,000 mg, 2 tab, Inactive Route: PO, Drug 2016 [facility] form: TAB, ONCE, Dosing Weight 80.909, kg, PRN Pain Score 1-3, Start date: 08/30/16 9:31:00 [place], Duration: 1 doses or times, Stop date: Limited # of timesNotes: Max acetaminophen 4000 mg/day (4 gm/day). (Same as: Tylenol Extra Strength) Labetalol 10 mg, 2 mL, Inactive Route: IVP, Drug 2016 [facility] form: INJ, Q5Min, Dosing Weight 80.909, kg, PRN Elevated BP, Start date: 08/30/16 9:31:00 [place], Duration: 5 doses or times, Stop date: 08/30/16 23:00:00 CSTNotes: (Same as: Normodyne, Trandate) Push over 2 minutes Give bolus over 2-3 minutes. Hydralazine 10 mg, 0.5 mL, Inactive Route: IVP, Drug 2016 [facility] form: INJ, Q20Min, Dosing Weight 80.909, kg, PRN Elevated BP, Start date: 08/30/16 9:31:00 [place], Duration: 2 doses or times, Stop date: 08/30/16 23:00:00 CSTNotes: (Same as: Apresoline) Push over 5 minutes Acetaminophen 1,000 mg, 100 Inactive mL, Route: IV, 2016 [facility] Drug form: INJ, ONCE, Dosing Weight 80.909, kg, Start date: 08/30/16 9:30:00 [place], Stop date: 08/30/16 9:30:00 CSTNotes: Infuse over 15 minutes Do not exceed 4gm/day of acetaminophen MEDICATION WASTE Product Size: 1000 mg Product Wasted: ___ mg Calcium Chloride 1,000 mL, Rate: Inactive 0.0014 MEQ/ML / 25 ml/hr, Infuse 2016 [facility] Potassium over: 40 hr, Chloride 0.004 Route: IV, MEQ/ML / Sodium Dosing Weight Chloride 0.103 80.909 kg, Total MEQ/ML / Sodium Volume: 1,000, Lactate 0.028 Start date: MEQ/ML 08/30/16 9:30:00 Injectable [place], Duration: Solution 12 hr, Stop date: 08/30/16 21:29:00 [place] Lactated Ringers 1,000 mL, Rate: Inactive 1,000 mL 70 ml/hr, Infuse 2016 [facility] over: 14.3 hr, Route: IV, Dosing Weight 80.909 kg, Total Volume: 1,000, Start date: 08/30/16 6:00:00 [place], Duration: 12 hr, Stop date: 08/30/16 17:59:00 [place] ceFAZolin 2 gm, 50 mL, Inactive Route: IVPB, 2016 [facility] Drug form: INJ, ONCALL, Start date: 08/30/16 6:00:00 [place], Duration: 12 hr, Stop date: 08/30/16 17:59:00 [place] Allergies, Adverse Reactions, Alerts Substance Category Reaction Severity Reaction Status Date Comments Source type Reported Bactrim Assertion Critical Drug Active [facility] Immunizations Immunization Date Given Site Status Last Updated Comments Source Results Order Results Value Reference Date Interpretation Comments Source Name Range Vital Signs Vital Sign Value Date Comments Source Respitory Rate 16 08/30/2016 [facility] Systolic (mm Hg) 120 08/30/2016 [facility] Diastolic (mm Hg) 70 08/30/2016 [facility] Systolic (mm Hg) 120 08/30/2016 [facility] Diastolic (mm Hg) 70 08/30/2016 [facility] Respitory Rate 16 08/30/2016 [facility] Systolic (mm Hg) 120 08/30/2016 [facility] Diastolic (mm Hg) 70 08/30/2016 [facility] Respitory Rate 16 08/30/2016 [facility] Heart Rate 85 08/30/2016 [facility] Weight 80.909 08/27/2016 [facility] Height 170.18 cm 08/27/2016 [facility] BMI Calculated 27.94 08/27/2016 [facility] Weight 80.909 08/13/2016 [facility] Height 170.18 cm 08/13/2016 [facility] BMI Calculated 27.94 08/13/2016 [facility] Encounters Location Location Encounter Encounter Reason Attending ADM DC Status Source Details Type Number For Provider Date Date Visit Outpatient [id number] [facility] [place] [id number] [id number] Edward 08/30 08/30 [facility] Sonam /2016 [facility] Outpatient [id number] EDWARD 09/15 [facility] [place] [facility] [id number] ED[facility] 10/13 [facility] [place] [facility] Phone [phone] 08/26 08/28 [facility] Neuro Procedures Procedure Code Date Perfomer Comments Source Injection into [id number] [facility] lumbar epidural space Perianal cysts 055077077 [facility] Injection into [id number] [facility] Neuro lumbar epidural space Laminectomy [id number] [facility] Neuro Perianal cysts 967538069 [facility]
--- OUTSIDE RECORDS SUMMARY | 2018-09-15 07:26 | XMS REPORT ---
[...] End Status Dosage System Date Date Simvastatin [facility] 99664090420 20 MG Orally Active 1 tablet in Once a day the evening Simvastatin [facility] 67016862996 20 MG Orally Active 1 tablet in Once a day the evening [place] ND 57714868900 50 MG Orally Active 1 capsule Twice a day Aspirin Adult [facility] 71101678166 81 MG Orally Active 1 tablet Low Dose Once a day Vitamin D3 [facility] 59066873991 1000 UNIT Active 5 capsuleS Orally Once a day Lisinopril [facility] 53169302942 20 MG Orally Active 1 tablet Once a day Vitamin B-12 [facility] 05847013575 1000 MCG Orally Active 1 tablet Once a day Results No Known Results Summary Purpose eClinicalWorks Submission
--- OUTSIDE RECORDS SUMMARY | 2018-09-15 07:27 | XMS REPORT ---
:1955 Author Organization eClinicalWorks Care Team Providers Name Role Phone Sadiq Flores Provider Role Unavailable Allergies, Adverse Reactions, Alerts Substance Reaction Event Type Bactrim STOMACHE ACHE Drug Allergy Problems Problem Type Condition Code Onset Dates Condition Status Assessment Encounter for screening colonoscopy Z12.11 Active Problem Mixed hyperlipidemia E78.2 Active Problem Fungal infection of nail B35.1 Active Problem Sciatic nerve pain, unspecified M54.30 Active laterality Problem Decreased hearing of both ears H91.93 Active Problem B12 deficiency E53.8 Active Problem Neuropathic pain M79.2 Active Problem Disc degeneration, lumbosacral M51.37 Active Problem Hypertension I10 Active Medications Medication Code Code Instructions Start End Status Dosage System Date Date Vitamin B-12 [facility] 82092088429 1000 MCG Orally Active 1 tablet Once a day Vitamin D3 [facility] 10039943213 1000 UNIT Active 5 capsuleS Orally Once a day Lisinopril [facility] 98792904429 20 MG Orally Active 1 tablet Once a day Lyrica [facility] 78693347703 50 MG Orally Active 1 capsule Twice a day Aspirin Adult [facility] 54825508544 81 MG Orally Active 1 tablet Low Dose Once a day Simvastatin [facility] 05556851213 20 MG Orally Active 1 tablet in Once a day the evening Simvastatin [facility] 39907658406 20 MG Orally Active 1 tablet in Once a day the evening Results No Known Results Summary Purpose eClinicalWorks Submission
--- OUTSIDE RECORDS SUMMARY | 2018-09-15 07:27 | XMS REPORT ---
:1955 Author Organization eClinicalWorks Care Team Providers Name Role Phone SolimanFredis Provider Role Unavailable Allergies, Adverse Reactions, Alerts Substance Reaction Event Type Bactrim STOMACHE ACHE Drug Allergy Problems Problem Type Condition Code Onset Dates Condition Status Assessment Acute non-recurrent frontal J01.10 Active sinusitis Problem Mixed hyperlipidemia E78.2 Active Assessment Cough R05 Active Problem Fungal infection of nail B35.1 Active Problem Sciatic nerve pain, unspecified M54.30 Active laterality Problem Decreased hearing of both ears H91.93 Active Problem B12 deficiency E53.8 Active Problem Neuropathic pain M79.2 Active Problem Disc degeneration, lumbosacral M51.37 Active Problem Hypertension I10 Active Medications Medication Code Code Instructions Start End Status Dosage System Date Date Simvastatin [facility] 70150955592 20 MG Orally Active 1 tablet in Once a day the evening Vitamin D3 [facility] 91913056234 1000 UNIT Active 5 capsuleS Orally Once a day Vitamin B-12 [facility] 25527914551 1000 MCG Orally Active 1 tablet Once a day Lyrica [facility] 69000329735 50 MG Orally Active 1 capsule Twice a day Lisinopril [facility] 77373583378 20 MG Orally Active 1 tablet Once a day Aspirin Adult [facility] 24853335898 81 MG Orally Active 1 tablet Low Dose Once a day Simvastatin [facility] 87121554580 20 MG Orally Active 1 tablet in Once a day the evening Zithromax [facility] 06800775422 250 MG Orally Aug 31, Sep 05, Active 2 tablets Once a day 2018 2018 on the first day, then 1 tablet daily for 4 days Results Name Result Date Reference Range Unit Abnormality Flag FLU TEST ----A Negative [id number] ----B Negative [id number] STREP A RAPID ----Result Negative [id number] Summary Purpose eClinicalWorks Submission
--- OUTSIDE RECORDS SUMMARY | 2018-09-15 07:27 | XMS REPORT ---
:1955 Author Organization eClinicalWorks Care Team Providers Name Role Phone Fredis Soliman Provider Role Unavailable Allergies, Adverse Reactions, Alerts Substance Reaction Event Type Bactrim STOMACHE ACHE Drug Allergy Problems Problem Type Condition Code Onset Dates Condition Status Assessment Well adult on routine health check Z00.00 Active Problem Mixed hyperlipidemia E78.2 Active Problem Fungal infection of nail B35.1 Active Assessment Need for pneumococcal vaccine Z23 Active Problem Sciatic nerve pain, unspecified M54.30 Active laterality Problem Decreased hearing of both ears H91.93 Active Problem B12 deficiency E53.8 Active Problem Neuropathic pain M79.2 Active Problem Disc degeneration, lumbosacral M51.37 Active Problem Hypertension I10 Active Assessment Decreased hearing of both ears H91.93 Active Assessment Sciatic nerve pain, unspecified M54.30 Active laterality Assessment Neuropathic pain M79.2 Active Assessment B12 deficiency E53.8 Active Assessment Former heavy tobacco smoker Z87.891 Active Assessment Encounter for screening for lung Z12.2 Active cancer Assessment Hypertension I10 Active Assessment Screening for colon cancer Z12.11 Active Assessment Mixed hyperlipidemia E78.2 Active Assessment Encounter for screening for other Z11.59 Active viral diseases Medications Medication Code Code Instructions Start End Status Dosage System Date Date Aspirin Adult [facility] 17833611393 81 MG Orally Active 1 tablet Low Dose Once a day Lyrica [facility] 54433860202 50 MG Orally Active 1 capsule Twice a day Simvastatin [facility] 54734900918 20 MG Orally Active 1 tablet in Once a day the evening Vitamin D3 [facility] 77635015043 1000 UNIT Active 5 capsuleS Orally Once a day Lisinopril [facility] 23707608183 20 MG Orally Active 1 tablet Once a day Simvastatin [facility] 11138541951 20 MG Orally Active 1 tablet in Once a day the evening Vitamin B-12 [facility] 65239773521 1000 MCG Orally Active 1 tablet Once a day Results No Known Results Immunizations Vaccine Administration Date PNEUMAVAX Aug 09, 2018 Summary Purpose eClinicalWorks Submission
--- OUTSIDE RECORDS SUMMARY | 2018-09-15 07:27 | XMS REPORT ---
:1955 Author Organization eClinicalWorks Care Team Providers Name Role Phone Jourdan Fredis Provider Role Unavailable Allergies No Known Allergies Problems Problem Type Condition Code Onset Dates Condition Status Assessment Hypertension I10 Active Problem Mixed hyperlipidemia E78.2 Active Problem Fungal infection of nail B35.1 Active Problem Sciatic nerve pain, unspecified M54.30 Active laterality Problem Decreased hearing of both ears H91.93 Active Problem B12 deficiency E53.8 Active Problem Neuropathic pain M79.2 Active Problem Disc degeneration, lumbosacral M51.37 Active Problem Hypertension I10 Active Medications Medication Code System Code Instructions Start Date End Date Status Dosage Lisinopril [facility] 99216261291 20 MG Orally Once Active 1 tablet a day Results No Known Results Summary Purpose eClinicalWorks Submission
[2018-09-15] MEDS ORDERED: Ringers Lactate 1,000 ML IV ONE (08:04)
[2018-09-15] MEDS ORDERED: PROPOFOL 200 MG/20 ML VIAL IV ONE ×2 (08:38→09:52)
[2018-09-15] MEDS ORDERED: LIDOCAINE 1% MPF 5 ML VIAL ONE (08:38)
--- NOTE | 2018-09-18 11:50 | ENDO RPT ---
[address], [address] COLONOSCOPY PROCEDURE REPORT EXAM DATE: 09/15/2018 PATIENT NAME: Gabino Rosenberg MR #: [id number] BIRTHDATE: 1955 ATTENDING: Sadiq Flores DR STATUS: outpatient RIGGING UP WORKER: Jennifer Craft RN, Ramirez Patricia, and Yee Patricia INDICATIONS: The patient is a 63 yr old Male here for a colonoscopy due to personal history of colon polyps PROCEDURE PERFORMED: Colonoscopy with biopsy - cold polypectomy MEDICATIONS: Per Anesthesia. ESTIMATED BLOOD LOSS: None CONSENT: The patient understands the risks and benefits of the procedure and understands that these risks include, but are not limited to: sedation, allergic reaction, infection, perforation and/or bleeding. Alternative means of evaluation and treatment include, among others: physical exam, x-rays, and/or surgical intervention. The patient elects to proceed with this endoscopic procedure. DESCRIPTION OF PROCEDURE: During intra-op preparation period all mechanical medical equipment was checked for proper function. Hand hygiene and appropriate measures for infection prevention was taken. Procedure, possible complications, alternatives including, but not limited to possibility of bleeding, perforation, tear, infection, sepsis, need for surgery, need for blood transfusion, were explained to the patient. After the risks, benefits and alternatives of the procedure were thoroughly explained, Informed consent was verified, confirmed and timeout was successfully executed by the treatment team. The patient was placed in the left lateral position. A digital rectal exam was performed and revealed an enlarged prostate. After appropriate level of anesthesia, the scope was passed. The [id number] ([id number]) endoscope was introduced through the anus and advanced to the cecum, which was identified by both the appendix and ileocecal valve. The quality of the prep was fair. The instrument was then slowly withdrawn as the colon was fully examined. Scope withdrawal time was 10 minutes. COLON FINDINGS: A small smooth sessile polyp with a friable surface was found at the cecum. A polypectomy was performed with cold forceps. The resection was complete, the polyp tissue was completely retrieved and sent to histology. The colon mucosa was otherwise normal. Mild diverticulosis was noted in the sigmoid colon. No bleeding was noted from the diverticulosis. Small internal hemorrhoids were found. Retroflexed views revealed no abnormalities. The scope was then completely withdrawn from the patient and the procedure terminated. ADVERSE EVENTS: There were no complications. IMPRESSIONS: 1. Small sessile polyp was found at the cecum; polypectomy was performed in a piecemeal fashion with cold forceps 2. The colon mucosa was otherwise normal RECOMMENDATIONS: 1. follow-up: office 2 week(s) 2. await biopsy results 3. avoid NSAIDS for 2 weeks 4. Monitor for any evidence of rectal bleeding. 5. See EGD report. 6. follow-up: primary MD 2 week(s) to discuss prostate check 7. hemorrhoidal hygiene RECALL: Return in 5 year(s) for Colonoscopy, pending biopsy results. Pending Biopsy Results Sadiq Flores DR eSigned: Sadiq Flores DR 09/15/2018 9:34 AM cc: CPT CODES: ICD9 CODES: PATIENT NAME: Gabino Rosenberg MR#: [id number]
--- NOTE | 2018-09-18 11:50 | ENDO RPT ---
[address], [address] EGD PROCEDURE REPORT EXAM DATE: 09/15/2018 PATIENT NAME: Gabino Rosenberg MR#: [id number] BIRTHDATE: 1955 ATTENDING: Sadiq Flores DR STATUS: outpatient ENTRY SPECIALISTS: Jennifer Craft RN, Ramirez Patricia, and Yee Patricia INDICATIONS: The patient is a 63 yr old Male here for an EGD due to follow-up of polyp PROCEDURE PERFORMED: EGD with biopsy for H. pylori and EGD with snare polypectomy MEDICATIONS: Per Anesthesia. TOPICAL ANESTHETIC: none CONSENT: The patient understands the risks and benefits of the procedure and understands that these risks include, but are not limited to: sedation, allergic reaction, infection, perforation and/or bleeding. Alternative means of evaluation and treatment include, among others: physical exam, x-rays, and/or surgical intervention. The patient elects to proceed with this endoscopic procedure. DESCRIPTION OF PROCEDURE: During intra-op preparation period all mechanical medical equipment was checked for proper function. Hand hygiene and appropriate measures for infection prevention was taken. Procedure, possible complications, and alternatives including but not limited to the possibility of bleeding, perforation, tear, infection, sepsis, need for surgery, need for blood transfusion, and anesthesia related complications were explained to the patient. After the risks, benefits and alternatives of the procedure were thoroughly explained, Informed consent was verified, confirmed and timeout was successfully executed by the treatment team. The patient was placed in the left lateral position. The patient was anesthetized with topical anesthesia. Through the anesthetized oropharyngeal area, the scope was passed without any difficulty. The EC-[id number] ([id number]) and Pentax EG-[id number] ([id number]) endoscope was introduced through the mouth and advanced to the second portion of the duodenum. Retroflexed views revealed a small hiatal hernia. The gastroscope was then slowly withdrawn and removed. A sessile polyp was found in the bulb and descending duodenum. It was erythematous fleshy hyperemic non-bleeding and small. It was removed with hot snare polypectomy using monopolar cautery. Polyp was retrieved and sent to pathology. Mild gastritis was found at the pylorus. A biopsy for H. pylori was taken. Duodenitis was found in the bulb of the duodenum. Monopolar cautery was performed after biopsy to ensure good hemostasis. A biopsy for H. pylori was taken. The duodenum was otherwise normal. Normal GE junction was noted. The esophagus was otherwise normal. ADVERSE EVENTS: There were no complications. IMPRESSIONS: 1. A sessile polyp was found in the bulb and descending duodenum 2. Mild gastritis was found at the pylorus 3. Duodenitis was found in the bulb of the duodenum 4. The duodenum was otherwise normal. 5. Normal GE junction 6. The esophagus was otherwise normal. RECOMMENDATIONS: 1. acid suppression therapy 2. anti-reflux regimen 3. await biopsy results 4. follow-up: office 2 week(s) 5. avoid NSAIDS 6. follow-up of helicobacter pylori status, treat if indicated REPEAT EXAM: for EGD. Pending Biopsy Results Sadiq Flores DR eSigned: Sadiq Flores DR 09/15/2018 9:30 AM cc: CPT CODES: ICD9 CODES: PATIENT NAME: Gabino Rosenberg MR#: [id number]
== END 2018-09-15 10:21 | disposition home or self-care (01) ==
LOC: OR 07:23
PROVIDERS: ATTEND Surgery
PROC: 0DB78ZX Excision of Stomach, Pylorus, Via Natural or Artificial Opening Endoscopic, Diagnostic (ICD-10-PCS; 2018-09-15)
PROC: 0DBH8ZX Excision of Cecum, Via Natural or Artificial Opening Endoscopic, Diagnostic (ICD-10-PCS; principal; 2018-09-15 08:30)
PROC: 0DB98ZX Excision of Duodenum, Via Natural or Artificial Opening Endoscopic, Diagnostic (ICD-10-PCS; 2018-09-15 08:30)
DX: Z12.11 Encounter for screening for malignant neoplasm of colon (principal); K63.5 Polyp of colon; K57.30 Diverticulosis of large intestine without perforation or abscess without bleeding; K64.8 Other hemorrhoids; N40.0 Benign prostatic hyperplasia without lower urinary tract symptoms; K31.7 Polyp of stomach and duodenum; K29.70 Gastritis, unspecified, without bleeding; K29.80 Duodenitis without bleeding; E78.2 Mixed hyperlipidemia; E53.8 Deficiency of other specified B group vitamins; I10 Essential (primary) hypertension; M51.37 Other intervertebral disc degeneration, lumbosacral region; Z79.82 Long term (current) use of aspirin; Z79.899 Other long term (current) drug therapy; Z87.891 Personal history of nicotine dependence
CPT/HCPCS: 88305; 88312; J2704

== ENCOUNTER 2019-07-27 06:28 | Day surgery (SDC) | payer BC ==
[2019-07-26 16:05] LABS: Absolute Lymphocytes (CBC) 0.4 K/uL (0.7-4.9); Basophils % 0.7 % (0-1.3); Lymphocytes % 5.6 % (15.3-44.8); MPV 8.2 fL (7.6-11.3); RBC Red Blood Cell Count 5.22 M/uL (4.33-5.43)
--- NOTE | 2019-07-26 16:10 | RAD REPORT ---
EXAM DESCRIPTION: RAD - Chest Pa And Lat (2 Views) - 07/26/2019 3:46 pm CLINICAL HISTORY: preop Chest pain. COMPARISON: Chest Pa And Lat (2 Views) dated 06/01/2018 FINDINGS: The lungs are mildly emphysematous but clear. The heart is upper limit of normal in size. No displaced fractures. IMPRESSION: Mild COPD.
[2019-07-26 16:21] LABS: Potassium 3.7 mmol/L (3.5-5.1)
[2019-07-26 16:46] LABS: Blood Morphology Comment NOT SEEN (NOT SEEN); Platelet Estimate ADEQ; Urine White Blood Cell Casts OK
--- OUTSIDE RECORDS SUMMARY | 2019-07-27 06:31 | XMS REPORT ---
:1955 Author Organization e[employer] Care Team Providers Name Role Phone Chucho Solimanh Provider Role Unavailable Allergies, Adverse Reactions, Alerts Substance Reaction Event Type Bactrim STOMACHE ACHE Drug Allergy Problems Problem Type Condition Code Onset Dates Condition Status Problem Mixed hyperlipidemia E78.2 Active Problem B12 deficiency E53.8 Active Problem Neuropathic pain M79.2 Active Problem Other chronic pain G89.29 Active Assessment Noncompliance w/medication Z91.14 Active treatment due to intermit use of medication Problem Decreased hearing of both ears H91.93 Active Assessment Need for influenza vaccination Z23 Active Assessment GERD without esophagitis K21.9 Active Problem GERD without esophagitis K21.9 Active Problem Disc degeneration, lumbosacral M51.37 Active Problem Hypertension I10 Active Problem Fungal infection of nail B35.1 Active Problem Sciatic nerve pain, unspecified M54.30 Active laterality Assessment B12 deficiency E53.8 Active Assessment Former heavy tobacco smoker Z87.891 Active Assessment Adult BMI 26.0-26.9 kg/sq m Z68.26 Active Assessment Neuropathic pain M79.2 Active Assessment Hypertension I10 Active Assessment Hepatitis C antibody positive in R76.8 Active blood Assessment Decreased hearing of both ears H91.93 Active Assessment Mixed hyperlipidemia E78.2 Active Assessment Sciatic nerve pain, unspecified M54.30 Active laterality Medications Medication Code Code Instructions Start End Status Dosage System Date Date Vitamin D3 [facility] 59167146444 1000 UNIT Active 5 capsuleS Orally Once a day Simvastatin [facility] 33694450983 20 MG Orally Active 1 tablet in Once a day the evening Vitamin B-12 [facility] 76030540699 1000 MCG Orally Active 1 tablet Once a day Aspirin Adult [facility] 70560570635 81 MG Orally Active 1 tablet Low Dose Once a day Lisinopril [facility] 33518785040 20 MG Orally Active 1 tablet Once a day Lyrica [facility] 87096498136 50 MG Orally Active 1 capsule Twice a day Omeprazole [facility] 26613208932 40 MG Orally Tianna Active 1 capsule Once a day 2018 Results No Known Results Immunizations Vaccine Administration Date Afluria single dose May 21, 2019 Summary Purpose eClinicalWorks Submission
--- OUTSIDE RECORDS SUMMARY | 2019-07-27 06:31 | XMS REPORT ---
:1955 Author Organization [employer] Care Team Providers Name Role Phone Chucho Solimanh Provider Role Unavailable Allergies, Adverse Reactions, Alerts Substance Reaction Event Type Bactrim STOMACHE ACHE Drug Allergy Problems Problem Type Condition Code Onset Dates Condition Status Problem Mixed hyperlipidemia E78.2 Active Problem B12 deficiency E53.8 Active Problem Neuropathic pain M79.2 Active Assessment Allergic rhinitis, unspecified J30.9 Active seasonality, unspecified trigger Assessment Acute pharyngitis, unspecified J02.9 Active etiology Assessment Acute non-recurrent sinusitis, J01.90 Active unspecified location Problem Other chronic pain G89.29 Active Problem Decreased hearing of both ears H91.93 Active Problem GERD without esophagitis K21.9 Active Problem Disc degeneration, lumbosacral M51.37 Active Problem Hypertension I10 Active Problem Fungal infection of nail B35.1 Active Problem Sciatic nerve pain, unspecified M54.30 Active laterality Medications Medication Code Code Instructions Start End Status Dosage System Date Date Lyrica [facility] 87739180818 50 MG Orally Active 1 capsule Twice a day Simvastatin [facility] 12255684176 20 MG Orally Active 1 tablet in Once a day the evening Vitamin D3 [facility] 23114775732 1000 UNIT Active 5 capsuleS Orally Once a day Aspirin Adult [facility] 32945343081 81 MG Orally Active 1 tablet Low Dose Once a day Omeprazole [facility] 70677607028 40 MG Orally Tianna Active 1 capsule Once a day 2018 Amoxicillin-Pot [facility] 74675426794 875-125 MG Jun 21, Jul 01, Active 1 tablet Clavulanate Orally every 12 2018 2019 hrs Vitamin B-12 [facility] 67926538590 1000 MCG Orally Active 1 tablet Once a day Lisinopril [facility] 89743747812 20 MG Orally Active 1 tablet Once a day Results No Known Results Summary Purpose eClinicalWorks Submission
--- OUTSIDE RECORDS SUMMARY | 2019-07-27 06:31 | XMS REPORT ---
:1955 Author Organization [employer] Care Team Providers Name Role Phone Soliman, Fredis Provider Role Unavailable Allergies No Known Allergies Problems Problem Type Condition Code Onset Dates Condition Status Problem Mixed hyperlipidemia E78.2 Active Problem B12 deficiency E53.8 Active Problem Neuropathic pain M79.2 Active Assessment Polyp of cecum D12.0 Active Problem Other chronic pain G89.29 Active Problem Decreased hearing of both ears H91.93 Active Problem GERD without esophagitis K21.9 Active Problem Disc degeneration, lumbosacral M51.37 Active Problem Hypertension I10 Active Problem Fungal infection of nail B35.1 Active Problem Sciatic nerve pain, unspecified M54.30 Active laterality Medications No Known Medications Results No Known Results Summary Purpose eClinicalWorks Submission
[2019-07-27] MEDS ORDERED: CEFAZOLIN/SWI 1gm 1 GM/10 ML SYR ONE (06:42)
[2019-07-27] MEDS ORDERED: Ringers Lactate 1,000 ML IV ONE (06:42)
[2019-07-27] MEDS ORDERED: BUPIVACAINE 0.5% PF 10 ML VIAL ONE (07:09)
[2019-07-27] MEDS ORDERED: propofoL 200 MG/20 ML VIAL IV ONE (07:12)
[2019-07-27] MEDS ORDERED: MIDAZOLAM HCL 2 MG/2 ML INJ ONE (07:12)
[2019-07-27] MEDS ORDERED: LIDOCAINE 1% MPF 5 ML VIAL ONE (07:12)
[2019-07-27] MEDS ORDERED: FENTANYL CITR 100 MCG/2 ML ONE ×2 (07:12→08:03)
[2019-07-27] MEDS ORDERED: KETOROLAC 30 MG/ML INJ ONE (07:39)
[2019-07-27] MEDS ORDERED: ONDANSETRON 4 MG/2 ML VIAL ONE (08:02)
--- NOTE | 2019-07-27 08:48 | P.BOP ---
Preoperative diagnosis: Perianal pain, abscess, possible fistula Postoperative diagnosis: same, perirectal abscess, fistula Primary procedure: EUA, anoscopy, rigid proctoscopy, I +D perirectal abscess Secondary procedure: fistulectomy Estimated blood loss: <10cc Specimen: biopsy and culture Findings: perirectal abscess associated to a fistula Anesthesia: General Complications: None Drain(s): Other (1/ " packing) Transferred to: Recovery Room Condition: Good
[2019-07-27 08:58] VITALS: TEMP 97.5
[2019-07-27] MEDS ORDERED: CODEINE 30MG/APAP 300MG TAB PO ONE (09:20)
[2019-07-27] MEDS ORDERED: CODEINE 30MG/APAP 300MG TAB ONE (09:26)
[2019-07-27 10:11] VITALS: BP 103/65; O2SAT 98
--- NOTE | 2019-07-29 06:42 | EKG ---
Test Date: 2019-07-26 Test Time: 15:15:29 [place] Operator: SRAVANTHI MEASUREMENT RESULTS: Intervals: Rate: 118 MS: 156 QRSD: 78 QT: 356 QTc: 498 [place]: P: 55 MS: 156 QRS: 50 T: 67 INTERPRETIVE STATEMENTS: Sinus tachycardia with premature atrial complexes Otherwise normal ECG No previous ECG available for comparison Electronically Signed On 07-29-19 06:41:29 UNDERWEAR FINISHER by Thee Ulrich
--- NOTE | 2019-08-01 23:20 | DS ---
Date of Discharge: 07/27/2019 Diagnoses: Perianal pain, abscess fistula; perirectal abscess. Procedure: EUA, anoscopy, rigid proctoscopy, incision and drainage of perirectal abscess, and fistul ectomy. Disposition: Home. Activity: As tolerated. No heavy lifting. Followup: Follow up in my office in 1 week. Call for appointment [phone]. Sitz baths 4 times a da y and after every bowel movement. Medications: See orders. DAREN/MODHarsha Voice ID: [id number] Report ID: [id number]
--- NOTE | 2019-08-01 23:26 | OP ---
Date of Procedure: 07/27/2019 Surgeon: Danny Darling MD Preoperative Diagnosis: Perianal pain, abscess with possible fistula. Postoperative Diagnoses: Perianal pain, abscess with possible fistula plus perirectal abscess and fi stula. Procedure: Examination under anesthesia, anoscopy, rigid proctoscopy, incision and drainage of perir ectal abscess, and fistulectomy. Estimated Blood Loss: Less than 10 mL. Specimen: Biopsy and culture. Findings: Perirectal abscess in the posterolateral region associated with a superficial fistula. Anesthesia: General plus local. Indications: This is the case of a 64-year-old patient having some problem with the abscess in the p erianal region before. He was diagnosed with a possible fistula before, recommended to have it check ed with this procedure, but he has not had a chance. Now, he comes with abscess once again with a sm all drainage and induration and tenderness. Patient fully explained above procedure with benefits, a lternatives, and risks including, but not limited to infection, bleeding, damage to adjacent structur es as complication, anal stricture, anal incontinence, recurrence, OK, even . He also understan ds this may not relieve any of symptoms. He might need more than one surgical intervention. He was advised also to keep following up with GI doctor to try to see if there are any other comorbidities t hat may be influencing the recurrence of this fistula. Description Of Procedure: Patient was brought to the operating room, placed in supine position. Ane sthesia was given without complication. Patient was placed in lithotomy position under proper protec tion. A time-out was called. The perineal area and perianal area were prepped and draped in a steri le fashion. We noticed the patient had small opening outside associated with an abscess that goes ri ght through it. So, we did a rectal exam, then rigid proctoscopy limited to about 6 to 7 cm, before that a just too much stools present that we could not see. We see the connection of that fistula in the area of the distal rectum associated with a perirectal abscess. So, we placed an anoscope after removing the rigid proctoscopy under direct visualization with the window on the side, inspected the anal canal, finding abscess, making incision over the abscess. We noted this tracked into the perire ctal region and associated with a fistula, so we opened the fistula, removed the tract, sent it for b iopsy, drained the abscess and loculations. Cultured the area, obtained hemostasis. The sphincter w as protected at all times. The area was profusely irrigated and then packed with iodoform packing. The patient tolerated the procedure well. Patient was sent to recovery in stable condition. Sponge count and instrument counts were correct. DAREN/BALTAZAR Voice ID: [id number] Report ID: [id number]
== END 2019-07-27 09:50 | disposition home health service (06) ==
LOC: OR 06:28
PROVIDERS: ATTEND Surgery
PROC: 0DBQ0ZZ Excision of Anus, Open Approach (ICD-10-PCS; 2019-07-27)
PROC: 0D9P0ZZ Drainage of Rectum, Open Approach (ICD-10-PCS; principal; 2019-07-27 07:30)
DX: K61.2 Anorectal abscess (principal); K60.5 Anorectal fistula
CPT/HCPCS: 93005; 87070; 85025; 80048; 36415; 87205 ×2; 87185; 88304; 87075; 87077; 87186; 71046; 46050; 46270; J2704; J2250; J3010 ×2; J0690; J7120; J2405